=== PATIENT | female | born 1985 | race African-American/Black ===

== ENCOUNTER 2017-01-22 04:20 | Emergency (ER) | payer BC ==
[2017-01-22 04:30] VITALS: BP 121/84; BMI 23.0
[2017-01-22 04:55] LABS: BASOPHILS % (AUTO) 0.4 % (0.2-1.0); HEMATOCRIT 33.9 % (36.0-47.0); HEMOGLOBIN 11.6 g/dL (12.0-16.0); LYMPHOCYTES # (AUTO) 2.9 X10^3/uL (1.3-2.9); LYMPHOCYTES % (AUTO) 39.8 % (21.0-51.0); MEAN CORPUSCULAR HEMOGLOBIN 29.6 pg (27.0-34.0); MEAN CORPUSCULAR HGB CONC 34.1 g/dL (33.0-35.0); MEAN CORPUSCULAR VOLUME 86.6 fL (80.0-100.0); MEAN PLATELET VOLUME 7.1 fL (7.4-11.0); MONOCYTES # (AUTO) 0.7 x10^3/uL (0.3-0.8); MONOCYTES % (AUTO) 9.6 % (0.0-13.0); NEUTROPHILS # (AUTO) 3.6 x10^3/uL (2.2-4.8); NEUTROPHILS % (AUTO) 50.2 % (42.0-75.0); PLATELET COUNT 378 X10^3/uL (150.0-450.0); RED BLOOD COUNT 3.92 X10^6/uL (3.5-5.4); RED CELL DISTRIBUTION WIDTH 15.5 % (11.6-16.5); WHITE BLOOD COUNT 7.2 X10^3/uL (3.6-10.0)
[2017-01-22 05:12] LABS: BLOOD UREA NITROGEN 7 mg/dL (7-18); CALCIUM 8.9 mg/dL (8.5-10.1); CARBON DIOXIDE 26.6 mmol/L (21-32); CHLORIDE 105 mmol/L (98-107); SODIUM 137 mmol/L (136-145); TROPONIN I < 0.02 ng/mL (0-1.5); eGFR BLACK RACES > 60 (>60); eGFR NON BLACK RACES > 60 (>60)
[2017-01-22 05:16] LABS: ALANINE AMINOTRANSFERASE 20 Units/L (12-78); ALKALINE PHOSPHATASE 43 Units/L (46-116); ASPARTATE AMINO TRANSFERASE 15 Units/L (15-37); CKMB % 1.3 % (<4); CREATINE KINASE 79 Units/L (26-192); CREATINE KINASE MB < 1.0 ng/mL (0-4.0); TOTAL PROTEIN 7.2 g/dL (6.4-8.2)
--- NOTE | 2017-01-22 05:48 | DR.SOBA ---
HPI - Time Seen Time seen: 05:50 - Primary Care Physician Primary Care Physician: KOKO - HPI Comment HPI Comment: SUB STERNAL CHEST PAIN TIMES 1 DAYS. SHARP PAIN THAT IS NON RADIATING. GETTING WORSE. NO MED TAKEN TO IMPROVE PAIN. PATIENT RECENTLY TOLD THYROID TEST WAS ABNORMAL. STILL PENDING FOLLOW UP. SHE DENIES FEVER. NON PRODUCTIVE COUGH PRESENT. SOME SOB PRERSENT. - Complaints Chief Complaint Doctors Comments: CHEST PAIN Chief Complaint:: "I FEEL SHORT OF BREATH, AND SHARP SHOOTING PAINS IN CHEST. I HAVE BEEN AFRAID TO GO TO SLEEP ALL NIGHT.I WENT TO THE WALK IN CLINIC ON SUNDAY BC I WAS HAVING STOMACH ISSUES AND THEY SAID MY T4 WAS LOW AND I NEEDED TO FOLLOW UP WITH ENDOCRONOLOGIST." - Reviewed Nurses Notes Reviewed: Yes - Source History Provided: Patient - Mode of Arrival Mode of Arrival: Ambulatory - Timing Onset of Chief Complaint: 01/21/17 - Duration Duration: Days - Context Onset:: At Rest PE Risk Factors:: None History of:: None Currently on:: Neither Prehospital Care:: None - Modifying Factors Worsens:: Lying Flat Improves:: Sitting Up - Associated Signs and Symptoms Associated Signs and Symptoms: Cough, Chest Pain - If Chest Pain Quality: Sharp Location: Substernal - If Cough Cough: Nonproductive PMH - PMH Past Medical History: Yes Past Medical History: Hypertension Past Medical History Comment: NO LONGER HAS HIGH BLOOD PRESSURE Past Surgical History: Yes Surgical History: , Hysterectomy - Family History History of Family Medical Conditions: No - Social History Does patient currently use any type of tobacco product: No Have you used tobacco products in the last 12 months: No Type of Tobacco Use: None Does any household member use tobacco: No Alcohol Use: None Do you use any recreational Drugs:: No Lives Where: Home - infectious screening Have you traveled outside the country in the last 6 months?: No Isolation: Standard ROS - Review of Systems Constitutional: Weakness, Fatigue. negative: Chills, Fever Eyes: No Symptoms Reported. negative: Eye Pain, Tearing ENTM: No Symptoms Reported. negative: Ear Pain, Nose Discharge, Nose Congestion , Throat Pain Respiratoy: Non-Productive Cough, Short of Breath. negative: Productive Cough, Wheezing, Hemoptysis Cardiovascular: Chest Pain. negative: Edema, Palpitations Gastrointestinal/Abdominal: Abdominal Pain (EPIGASTRIC). negative: Diarrhea, Nausea, Vomiting Genitourinary: No Symptoms Reported. negative: Dysuria, Frequency, Hematuria Neurological: Weakness. negative: Headache, Dizziness Musculoskeletal: No Symptoms Reported Integumentary: No Symptoms Reported Hematologic/Lymphatic: No Symptoms Reported Endocrine: No Symptoms Reported All Other Systems: Reviewed and Negative PE - Vital Signs Vitals: Pulse Rate 85 Respiratory Rate 16 Blood Pressure 121/84 O2 Sat by Pulse Oximetry 99 - General Limitations: No Limitations General Appearance: Alert - Head Head Exam: Normal Inspection - Eyes Eye exam: Normal Appearance, PERRL, EOMI. negative: Scleral Icterus, Conjunctival Injection - ENT ENT Exam: Normal Oropharynx, Normal External Ear Exam, TM's Normal Bilaterally - Neck Neck Exam: Trachea Midline. negative: Tenderness, Meningismus, Lymphadenopathy - Chest Chest Inspection: Symmetric Chest Wall Rise - Respiratory Respiratory Exam: Normal Lung Sounds Bilat Respiratory Exam: Bilateral Clear to Auscultation - Cardiovascular Cardiovascular Exam: Regular Rate, Normal Rhythm, Normal Heart Sounds - Abdominal Exam Abdominal Exam: Normal Bowel Sounds, Soft. negative: Tenderness - Extremities Extremities Exam: Normal Inspection - Back Back Exam: Normal Inspection - Neurologic Neurological Exam: Alert, Oriented X3, CN II-XII Intact. negative: Normal Gait , Motor Sensory Deficit - Psychiatric Psychiatric Exam: Anxious - Skin Skin Exam: Normal Color MDM - Additional Information Obtained Additional Information Obtained From: Family - Differential Diagnosis Differential Diagnosis: Anxiety, Bronchitis, Mycardial Infarction, Pneumonia, Pneumothorax, Sinusitis, URI Course - Treatment Treatment: SEE ORDERS. - Education/Counseling Education/Counseling: Patient, Education Educated On: Treatment, Diagnosis, Needs for Follow Up ROR - Labs Reviewed Laboratory Results Reviewed?: Yes Result Diagrams: 01/22/17 04:45 01/22/17 04:45 Laboratory: WBC 7.2 X10^3/uL (3.6-10.0) 01/22/17 04:45 RBC 3.92 X10^6/uL (3.5-5.4) 01/22/17 04:45 Hgb 11.6 g/dL (12.0-16.0) L 01/22/17 04:45 Hct 33.9 % (36.0-47.0) L 01/22/17 04:45 MCV 86.6 fL (80.0-100.0) 01/22/17 04:45 MCH 29.6 pg (27.0-34.0) 01/22/17 04:45 MCHC 34.1 g/dL (33.0-35.0) 01/22/17 04:45 RDW 15.5 % (11.6-16.5) 01/22/17 04:45 Plt Count 378 X10^3/uL (150.0-450.0) 01/22/17 04:45 MPV 7.1 fL (7.4-11.0) L 01/22/17 04:45 Neut % 50.2 % (42.0-75.0) 01/22/17 04:45 Lymph % 39.8 % (21.0-51.0) 01/22/17 04:45 Dunn % 9.6 % (0.0-13.0) 01/22/17 04:45 Eos % 0.0 % (0.9-2.9) L 01/22/17 04:45 Baso % 0.4 % (0.2-1.0) 01/22/17 04:45 Neut # 3.6 x10^3/uL (2.2-4.8) 01/22/17 04:45 Lymph # 2.9 X10^3/uL (1.3-2.9) 01/22/17 04:45 Dunn # 0.7 x10^3/uL (0.3-0.8) 01/22/17 04:45 Eos # 0.0 x10^3/uL (0.0-0.2) 01/22/17 04:45 Baso # 0.0 X10^3/uL (0.0-0.1) 01/22/17 04:45 Absolute Nucleated RBC 0.1 /100WBC 01/22/17 04:45 Sodium 137 mmol/L (136-145) 01/22/17 04:45 Corrected Sodium TNP 01/22/17 04:45 Potassium 3.7 mmol/L (3.5-5.1) 01/22/17 04:45 Chloride 105 mmol/L (98-107) 01/22/17 04:45 Carbon Dioxide 26.6 mmol/L (21-32) 01/22/17 04:45 BUN 7 mg/dL (7-18) 01/22/17 04:45 Creatinine 0.70 mg/dL (0.55-1.02) 01/22/17 04:45 Est GFR (MDRD) Af Amer > 60 (>60) 01/22/17 04:45 Est GFR (MDRD) Non-Af > 60 (>60) 01/22/17 04:45 Glucose 89 mg/dL (65-99) 01/22/17 04:45 Calcium 8.9 mg/dL (8.5-10.1) 01/22/17 04:45 Corrected Calcium TNP 01/22/17 04:45 Total Bilirubin 0.30 mg/dL (0.2-1.0) 01/22/17 04:45 AST 15 Units/L (15-37) 01/22/17 04:45 ALT 20 Units/L (12-78) 01/22/17 04:45 Alkaline Phosphatase 43 Units/L (46-116) L 01/22/17 04:45 Creatine Kinase 79 Units/L (26-192) 01/22/17 04:45 CK-MB (CK-2) < 1.0 ng/mL (0-4.0) 01/22/17 04:45 CK/CKMB % Calc 1.3 % (<4) 01/22/17 04:45 Troponin I < 0.02 ng/mL (0-1.5) 01/22/17 04:45 Total Protein 7.2 g/dL (6.4-8.2) 01/22/17 04:45 Albumin 4.0 g/dL (3.4-5.0) 01/22/17 04:45 Globulin 3.2 g/dL (2.5-4.5) 01/22/17 04:45 Albumin/Globulin Ratio 1.3 Ratio (1.1-2.1) 01/22/17 04:45 H. pylori IgG Antibody Positive (NEGATIVE) A 01/22/17 04:45 - XRAY XRAY Interpreted by: Self XRAY Findings: DISCUSS NORMAL CHEST XRAY WITH PATIENT. - Diagnosis Discharge Problem: Pain, Helicobacter positive gastritis - Discharge Plan Disposition: 01 HOME, SELF-CARE Condition: Stable Prescriptions: Ranitidine HCl [ZANTAC TAB 150 MG *] 150 mg PO BID #60 tab - Follow ups/Referrals Follow ups/Referrals: NFD,None [Primary Care Provider] - 3 days - Instructions Instructions: Helicobacter Pylori Antibodies Test, Chest Pain Observation Additional Instructions: RETURN TO ED IF WORSE. YOUR DOCTOR WILL TREAT THE H PYLORI POSITIVE TEST.
[2017-01-22] MEDS ORDERED: LEVSIN/MAALOX/LIDOC VISC PO ONE (05:56)
[2017-01-22] MEDS ORDERED: ZANTAC PO ONE ×2 (05:57→05:59)
[2017-01-22] MEDS ORDERED: LEVSIN/MAALOX/LIDOC VISC ONE (05:58)
== END 2017-01-22 06:02 | disposition home or self-care (01) ==
LOC: ER 04:20
DX: R07.89 Other chest pain (principal); B96.81 Helicobacter pylori [H. pylori] as the cause of diseases classified elsewhere
CPT/HCPCS: 36415; 71010; 80053; 82550; 82553; 84484; 85025; 86677; 93005; 93010; 99283

== ENCOUNTER 2017-08-07 18:14 | Emergency (ER) | payer BC ==
[2017-08-07 18:19] VITALS: BP 131/76; BMI 26.4
--- NOTE | 2017-08-07 18:40 | DR.GENAD ---
HPI - PCP Primary Care Physician: dr stan[place] in [place] - HPI Comment HPI Comment: pt states her symptoms have been going on for years, but worsening lately. No prior w/u, has never worn monitor. SOB particularly bad with even mild exertion, pt feels palpitations when walking short distances. - Complaint/Symptoms Chief Complaint:: patient stated she has been short of breath and her heart has been beating fast for about a hour - Nurses notes reviewed Nurses Notes Review: Yes - Source History Provided: Patient - Mode of Arrival Mode of Arrival: Ambulatory - Timing Onset of Chief Complaint: 08/07/17 PMH - PMH Past Medical History: Yes (hx tachycardia 'for years) Past Medical History: Hypertension Past Surgical History: Yes Surgical History: , Hysterectomy Past Surgical History Comment: recent lap surg for lysis of adhesions - Family History History of Family Medical Conditions: No - Social History Does patient currently use any type of tobacco product: Yes Have you used tobacco products in the last 12 months: Yes Type of Tobacco Use: Cigarettes How many years tobacco product used: 8 Does any household member use tobacco: Yes Alcohol Use: None Do you use any recreational Drugs:: Yes (thc) Lives With: Family Lives Where: Home - infectious screening In the last 2 months have you had wt loss of >10#?: NO Have you had fever, night sweats or hemotysis?: No Have you traveled outside the country in the last 6 months?: No Isolation: Standard ROS - Review of Systems Constitutional: No Symptoms Reported, Fatigue (fatigue after brief exertion) Eyes: No Symptoms Reported ENTM: No Symptoms Reported Respiratoy: No Symptoms Reported Cardiovascular: No Symptoms Reported, See HPI, Palpitations. negative: Chest Pain Gastrointestinal/Abdominal: No Symptoms Reported, Other (recent abd surgery) Genitourinary: No Symptoms Reported, Other (s/p hyst) Neurological: No Symptoms Reported Musculoskeletal: No Symptoms Reported Integumentary: No Symptoms Reported Hematologic/Lymphatic: No Symptoms Reported Endocrine: No Symptoms Reported Psychiatric: No Symptoms Reported All Other Systems: Reviewed and Negative PE - Vital Signs Vitals: Temperature 98.6 F Pulse Rate 153 Respiratory Rate 18 Blood Pressure 131/76 O2 Sat by Pulse Oximetry 100 - General Limitations: No Limitations General Appearance: Alert, In No Apparent Distress - Head Head Exam: Normal Inspection, Normocephalic - Eyes Eye exam: Normal Appearance - ENT ENT Exam: Normal Exam, Normal Oropharynx Mouth Exam: Normal Inspection Throat Exam: Normal Inspection - Neck Neck Exam: Normal Inspection, Full ROM, Trachea Midline - Chest Chest Inspection: Normal Inspection, Symmetric Chest Wall Rise, Tenderness - Respiratory Respiratory Exam: Normal Lung Sounds Bilat Respiratory Exam: Bilateral Clear to Auscultation - Cardiovascular Cardiovascular Exam: Tachycardia (HR 110's on exam, 150's on triage) - Abdominal Exam Abdominal Exam: Normal Inspection, Normal Bowel Sounds, Soft. negative: Tenderness, Guarding - Extremities Extremities Exam: Normal Inspection, Edema - Neurologic Neurological Exam: Alert, Oriented X3 - Psychiatric Psychiatric Exam: Normal Affect, Normal Mood - Skin Skin Exam: Warm, Dry, Intact. negative: Pallor, Mottled ROR - Labs Reviewed Laboratory Results Reviewed?: Yes (reviewed all labs w/pt) Result Diagrams: 08/07/17 18:46 04 18:46 Laboratory: WBC 7.4 X10^3/uL (3.6-10.0) 08/07/17 18:46 RBC 3.70 X10^6/uL (3.5-5.4) 18 18:46 Hgb 11.8 g/dL (12.0-16.0) L 18 18:46 Hct 33.9 % (36.0-47.0) L 08/07/17 18:46 MCV 91.8 fL (80.0-100.0) 18 18:46 MCH 31.9 pg (27.0-34.0) 08/07/17 18:46 MCHC 34.7 g/dL (33.0-35.0) 08/07/17 18:46 RDW 12.8 % (11.6-16.5) 18 18:46 Plt Count 365 X10^3/uL (150.0-450.0) 08/07/17 18:46 MPV 7.3 fL (7.4-11.0) L 08/07/17 18:46 Neut % (Auto) 46.7 % (42.0-75.0) 08/07/17 18:46 Lymph % (Auto) 44.0 % (21.0-51.0) 08/07/17 18:46 Beckham % (Auto) 8.5 % (0.0-13.0) 08/07/17 18:46 Eos % (Auto) 0.3 % (0.9-2.9) L 08/07/17 18:46 Baso % (Auto) 0.5 % (0.2-1.0) 18 18:46 Neut # (Auto) 3.5 x10^3/uL (2.2-4.8) 08/07/17 18:46 Lymph # (Auto) 3.3 X10^3/uL (1.3-2.9) H 08/07/17 18:46 Beckham # (Auto) 0.6 x10^3/uL (0.3-0.8) 08/07/17 18:46 Eos # (Auto) 0.0 x10^3/uL (0.0-0.2) 18 18:46 Baso # (Auto) 0.0 X10^3/uL (0.0-0.1) 08/07/17 18:46 Absolute Nucleated RBC 0.0 /100WBC 18 18:46 INR Target Range - 08/07/17 18:46 INR 0.97 (0.8-1.3) 08/07/17 18:46 APTT 28.0 SECONDS (22.9-36.5) 08/07/17 18:46 PTT Comment - 08/07/17 18:46 D-Dimer 294 ng/mL (0-400) 08/07/17 18:46 Sodium 140 mmol/L (136-145) 08/07/17 18:46 Corrected Sodium 140 mmol/L (136-145) 18 18:46 Potassium 3.3 mmol/L (3.5-5.1) L 18 18:46 Chloride 106 mmol/L (98-107) 08/07/17 18:46 Carbon Dioxide 24.6 mmol/L (21-32) 08/07/17 18:46 BUN 8 mg/dL (7-18) 18 18:46 Creatinine 0.72 mg/dL (0.55-1.02) 08/07/17 18:46 Est GFR (MDRD) Af Amer > 60 (>60) 08/07/17 18:46 Est GFR (MDRD) Non-Af > 60 (>60) 08/07/17 18:46 Glucose 117 mg/dL (65-99) H 08/07/17 18:46 Calcium 8.7 mg/dL (8.5-10.1) 18 18:46 Corrected Calcium TNP 08/07/17 18:46 Magnesium 2.0 mg/dL (1.7-2.9) 08/07/17 18:46 Total Bilirubin 0.20 mg/dL (0.2-1.0) 08/07/17 18:46 AST 7 Units/L (15-37) L 08/07/17 18:46 ALT 14 Units/L (12-78) 08/07/17 18:46 Alkaline Phosphatase 45 Units/L (46-116) L 08/07/17 18:46 Creatine Kinase 71 Units/L (26-192) 08/07/17 18:46 CK-MB (CK-2) < 1.0 ng/mL (0-4.0) 08/07/17 18:46 CK/CKMB % Calc 1.4 % (<4) 08/07/17 18:46 Troponin I < 0.02 ng/mL (0-1.5) 08/07/17 18:46 B-Natriuretic Peptide < 5.0 pg/mL (0-79) 08/07/17 18:46 Total Protein 7.8 g/dL (6.4-8.2) 08/07/17 18:46 Albumin 4.3 g/dL (3.4-5.0) 08/07/17 18:46 Globulin 3.5 g/dL (2.5-4.5) 18 18:46 Albumin/Globulin Ratio 1.2 Ratio (1.1-2.1) 18 18:46 TSH 3rd Generation 0.310 uIU/mL (0.358-3.74) L 08/07/17 18:46 Specimen Type Clean catch urine 08/07/17 19:34 Urine Color Yellow (YELLOW) 08/07/17 19:34 Urine Appearance Clear (CLEAR) 08/07/17 19:34 Urine pH 6.5 (5.0 - 8.0) 08/07/17 19:34 Ur Specific [place] 1.015 (1.000-1.030) 08/07/17 19:34 Urine Protein Negative (NEGATIVE) 08/07/17 19:34 Urine Glucose (UA) Negative (NEGATIVE) 08/07/17 19:34 Urine Ketones Negative (NEGATIVE) 08/07/17 19:34 Urine Occult Blood Negative (NEGATIVE) 08/07/17 19:34 Urine Nitrite Negative (NEGATIVE) 08/07/17 19:34 Urine Bilirubin Negative (NEGATIVE) 08/07/17 19:34 Urine Urobilinogen Normal (NORMAL) 08/07/17 19:34 Ur Leukocyte Esterase Negative (NEGATIVE) 08/07/17 19:34 Urine Opiates Screen Negative (NEG=<300) 08/07/17 19:34 Urine Methadone Screen Negative (NEG=<300) 08/07/17 19:34 Ur Barbiturates Screen Negative (NEG=<200) 08/07/17 19:34 Ur Phencyclidine Scrn Negative (NEG=<25) 08/07/17 19:34 Ur Amphetamines Screen Negative (NEG=<1000) 08/07/17 19:34 U Benzodiazepines Scrn Negative (NEG=<200) 08/07/17 19:34 Urine Cocaine Screen Negative (NEG=<300) 08/07/17 19:34 U Marijuana (THC) Screen Negative (NEG=<50) 08/07/17 19:34 - Other Results Comments: W/U generally neg except TSH. Pt then states she has Graves dz. Cardiacs all normal. Apart from Graves no reason for tachycardia seen in w /u. CXR clear. - XRAY XRAY Interpreted by: Radiologist XRAY Findings: nothing acute - EKG Compared to prior EKG Dated: 08/07/17 (no old EKGs) Rate: 126 (sinus tach) Dale: Normal Rhythm: NSR Block: None Hypertrophy: LAE ST: Normal - Diagnosis Discharge Problem: Tachycardia, Graves disease, Fatigue Narrative Support Text: agreed w/pt to start low dose Bblocker for symptom control. Pt strongly encouraged to f/u cards for monitor, further eval. Pt reassured with workup, which was reviewed at length w/pt. - Discharge Plan Disposition: HOME, SELF-CARE Condition: Stable Prescriptions: Metoprolol Tartrate [Lopressor] 25 mg PO DAILY #30 tablet - Follow ups/Referrals Follow ups/Referrals: NFD,None [Primary Care Provider] - 3 days - Instructions
[2017-08-07] MEDS ORDERED: NS 1000 ML 1,000 ML ONE (18:47)
[2017-08-07] MEDS ORDERED: NS 1000 ML 1,000 ML IV ONE (18:48)
--- NOTE | 2017-08-07 18:57 | RAD ---
HISTORY: Chest pain Study: Single view chest Comparison: 01/22/2017 Findings: Single portable upright view is submitted. No infiltrate, effusion or pneumothorax identified. The ca rdiac and mediastinal contours are within normal limits. The soft tissues are unremarkable. IMPRESSION: 1. No acute cardiopulmonary abnormality. Reported By:
[2017-08-07 19:02] LABS: BASOPHILS % (AUTO) 0.5 % (0.2-1.0); EOSINOPHILS % (AUTO) 0.3 % (0.9-2.9); HEMATOCRIT 33.9 % (36.0-47.0); HEMOGLOBIN 11.8 g/dL (12.0-16.0); LYMPHOCYTES # (AUTO) 3.3 X10^3/uL (1.3-2.9); MEAN CORPUSCULAR HEMOGLOBIN 31.9 pg (27.0-34.0); MEAN CORPUSCULAR HGB CONC 34.7 g/dL (33.0-35.0); MEAN CORPUSCULAR VOLUME 91.8 fL (80.0-100.0); MEAN PLATELET VOLUME 7.3 fL (7.4-11.0); MONOCYTES # (AUTO) 0.6 x10^3/uL (0.3-0.8); MONOCYTES % (AUTO) 8.5 % (0.0-13.0); NEUTROPHILS # (AUTO) 3.5 x10^3/uL (2.2-4.8); NEUTROPHILS % (AUTO) 46.7 % (42.0-75.0); PLATELET COUNT 365 X10^3/uL (150.0-450.0); RED CELL DISTRIBUTION WIDTH 12.8 % (11.6-16.5); WHITE BLOOD COUNT 7.4 X10^3/uL (3.6-10.0)
[2017-08-07 19:16] LABS: BLOOD UREA NITROGEN 8 mg/dL (7-18); CALCIUM 8.7 mg/dL (8.5-10.1); CARBON DIOXIDE 24.6 mmol/L (21-32); CHLORIDE 106 mmol/L (98-107); COR NA(FOR HYPERGLY) 140 mmol/L (136-145); CREATININE 0.72 mg/dL (0.55-1.02); SODIUM 140 mmol/L (136-145); TROPONIN I < 0.02 ng/mL (0-1.5); eGFR BLACK RACES > 60 (>60); eGFR NON BLACK RACES > 60 (>60)
[2017-08-07 19:27] LABS: B-TYPE NATRIURETIC PEPTIDE < 5.0 pg/mL (0-79)
[2017-08-07 19:29] LABS: ALANINE AMINOTRANSFERASE 14 Units/L (12-78); ALBUMIN 4.3 g/dL (3.4-5.0); ALKALINE PHOSPHATASE 45 Units/L (46-116); ASPARTATE AMINO TRANSFERASE 7 Units/L (15-37); CKMB % 1.4 % (<4); CREATINE KINASE 71 Units/L (26-192); CREATINE KINASE MB < 1.0 ng/mL (0-4.0); TOTAL PROTEIN 7.8 g/dL (6.4-8.2)
[2017-08-07 19:42] LABS: BILIRUBIN,URINE NEGATIVE (NEGATIVE); BLOOD/HEMOGLOBIN,URINE NEGATIVE (NEGATIVE); GLUCOSE, URINE NEGATIVE (NEGATIVE); KETONES,URINE NEGATIVE (NEGATIVE); LEUKOCYTE ESTERASE ,URINE NEGATIVE (NEGATIVE); NITRITES,URINE NEGATIVE (NEGATIVE); PH,URINE 6.5 (5.0 - 8.0); PROTEIN,URINE NEGATIVE (NEGATIVE); UROBILINOGEN,URINE NORMAL (NORMAL)
[2017-08-07 19:48] LABS: APPEARANCE,URINE CLEAR (CLEAR); COLOR,URINE YELLOW (YELLOW)
== END 2017-08-07 20:10 | disposition home or self-care (01) ==
LOC: ER 18:27
DX: R00.0 Tachycardia, unspecified (principal); E05.00 Thyrotoxicosis with diffuse goiter without thyrotoxic crisis or storm; R53.83 Other fatigue; R94.31 Abnormal electrocardiogram [ECG] [EKG]
CPT/HCPCS: 36415; 71045; 80053; 80307; 81003; 82550; 82553; 83735; 83880; 84443; 84484; 85025; 85378; 85610; 85730; 93005; 93010; 96365; 99283; A4222; G0434